=== PATIENT | female | born 1945 | race Caucasian/White ===

== ENCOUNTER → 2017-12-29 | Outpatient (CLI) | payer MEDICARE, OTHER ==
[2017-12-29 08:44] LABS: PLATELET COUNT, AUTOMATED 196 K/uL (150-450)
[2017-12-29 08:56] LABS: LDL CHOLESTEROL 151 mg/dl
== END ==
LOC: LAB 08:02
PROVIDERS: ATTEND Nurse Practitioner Family
DX: E03.9 Hypothyroidism, unspecified (principal); I48.91 Unspecified atrial fibrillation; E55.9 Vitamin D deficiency, unspecified; M81.0 Age-related osteoporosis without current pathological fracture; I10 Essential (primary) hypertension
CPT/HCPCS: 36415; 82040; 82247; 82306; 82310; 82374; 82435; 82465; 82565; 82947; 83718; 84075; 84132; 84155; 84295; 84443; 84450; 84460; 84478; 84520; 85025

== ENCOUNTER → 2018-02-15 | Outpatient (CLI) | payer MEDICARE, OTHER ==
--- NOTE | 2018-02-15 12:49 | EKG ---
FACILITY: [facility] PATIENT NAME: LEONEL MOLINA : [id number] MR: [id number] V: [id number] EXAM DATE: ORDERING PHYSICIAN: ALEXANDRE PURCELL TECHNOLOGIST: KAREY Test Reason : SOB Blood Pressure : / mmHG Vent. Rate : 056 BPM Atrial Rate : 056 BPM P-R Int : 166 ms QRS Dur : 106 ms QT Int : 468 ms P-R-T Axes : 067 080 084 degrees QTc Int : 451 ms Sinus bradycardia Voltage criteria for left ventricular hypertrophy Cannot rule out Inferior infarct , age undetermined Abnormal ECG No previous ECGs available Confirmed by DEYANIRA ALMAGUER ([id number]) on 02/15/2018 8:05:17 PM Referred By: JAZZY Confirmed By:DEYANIRA ALMAGUER
--- NOTE | 2018-02-15 13:14 | RADIOLOGY IMAGING REPORT ---
FACILITY: [facility] PATIENT NAME: April Bailey : 1945 MR: [id number] V: [id number] EXAM DATE: ORDERING PHYSICIAN: LILLY PURCELL TECHNOLOGIST: Location: [facility] Patient: April Bailey : 1945 Visit/Account:[id number] Date of Sevice: 02/15/2018 2 VIEWS CHEST INDICATION: Shortness of breath. A. fib. COMPARISON: None available FINDINGS: The lungs are clear. No effusion or pneumothorax is seen. Heart size and mediastinal contours are nor mal. Suspect prior bilateral mastectomies. Correlate clinically. There are bilateral surgical clip s. Scattered atherosclerosis within the aortic arch. Degenerative changes involve the mid thoracic spine. IMPRESSION: 1. No radiographic evidence of active disease. 2. Atherosclerotic thoracic aorta. Report Dictated By: Uriel Fried at 02/15/2018 1:10 PM Report E-Signed By: Uriel Fried at 02/15/2018 1:11 PM WSN:[email or web address]
== END ==
LOC: RESP 12:15
PROVIDERS: ATTEND Nurse Practitioner Family
DX: R06.02 Shortness of breath (principal); I10 Essential (primary) hypertension; I48.91 Unspecified atrial fibrillation; I70.0 Atherosclerosis of aorta; R94.31 Abnormal electrocardiogram [ECG] [EKG]
CPT/HCPCS: 71046; 93005

== ENCOUNTER → 2018-03-05 | Outpatient (CLI) | payer MEDICARE, OTHER | LOC: LAB 08:32 | PROVIDERS: ATTEND Nurse Practitioner Family | DX: E78.5 Hyperlipidemia, unspecified (principal); E55.9 Vitamin D deficiency, unspecified | CPT/HCPCS: 36415; 82306; 82465; 83718; 84478 ==

== ENCOUNTER → 2018-07-12 | Outpatient (CLI) | payer MEDICARE, OTHER ==
[~2018-07-12] MED LIST: APIX5TAB4; ATEN-1 PO; DEN60I SUBQ; ESCI10TA8 PO; FURO-45 PO; LEVO50TA80 PO; POTA1POW11; RIZA10TA PO
--- NOTE | 2018-07-12 11:31 | RADIOLOGY IMAGING REPORT ---
FACILITY: [facility] [place] PATIENT NAME: April Bailey : 1945 MR: [id number] V: [id number] EXAM DATE: ORDERING PHYSICIAN: LILLY PURCELL TECHNOLOGIST: Location: [facility] Patient: April Bailey : 1945 Visit/Account:[id number] Date of Sevice: 07/12/2018 DEXA Scan Clinical history: History of breast cancer. Comparison: None available. LUMBAR SPINE: The bone mineral density (BMD) measured from L1-L4 correlates with a Z-score 0.6 and a T-score of -0. 3 which is Normal as defined by the World Health Organization. The corresponding risk of fracture in the lumbar spine is Not increased compared with a young adult reference population. HIP: Bone mineral density (BMD) measured in the Left total hip region correlates with a Z-score zero and a T-score of -1 which is Normal as defined by the World Health Organization. The corresponding risk o f fracture in the hip is 2 times increased compared with a young adult reference population. T scor e left femoral neck -1.1 Bone mineral density (BMD) measured in the Femoral Neck region measures 0.884 g/cm2. Impression: 1. Lumbar spine: Normal. 2. Left Hip: Normal. 3. Femoral Neck: Bone Mineral Density is 0.884 g/cm2 The next DEXA scan of this patient should include the following sites: L1-L4 and the left hip. FRAX? WHO Fracture Risk Assessment Tool link: <http://www.shef.ac.uk/FRAX/tool.jsp?locationValue=9> PLEASE NOTE: 1) The World Health Organization defines low BMD as follows: T-score Normal > -1 Osteopenia < -1 and > -2.5 Osteoporosis < -2.5 without fractures Established osteoporosis < -2.5 with fractures 2) In general, you may wish to consider: Diagnosis Treatment Follow-up DEXA Normal BMD Prevention 2-3 years Osteopenia Prevention/therapy 1-2 years Osteoporosis Therapy Yearly 3) Fracture risk estimated from the T-score is more accurate for vertebral fractures (often spontane ous) than for hip fractures. Report Dictated By: Ann Claudio MD at 07/12/2018 11:11 AM Report E-Signed By: Ann Claudio MD at 07/12/2018 11:27 AM WSN:[email or web address]
== END ==
LOC: RAD 03:40
PROVIDERS: ATTEND Nurse Practitioner Family
DX: M81.0 Age-related osteoporosis without current pathological fracture (principal); Z85.3 Personal history of malignant neoplasm of breast
CPT/HCPCS: 77080

== ENCOUNTER → 2018-10-26 | Outpatient (CLI) | payer MEDICARE, OTHER ==
[~2018-10-26] MED LIST changes: +ACET-1966 PO; +CALC-734 PO; +GLUC100026 PO; +KRIL1CAP22; +[UNRECOGNIZED DRUG - CODE] PO
[2018-10-26 17:03] LABS: PLATELET COUNT, AUTOMATED 205 K/uL (150-450)
--- NOTE | 2018-10-27 01:00 | EKG ---
FAC[place] [facility] [place]IENT NAME: LEONEL MOLINA : [id number] MR: [id number] V: [id number] EXAM DATE: ORDERING PHYSICIAN: MUNA CALERO TECHNOLOGIST: JIMMIE Stone Reason : PRE-OP Blood Pressure : / mmHG Vent. Rate : 064 BPM Atrial Rate : 064 BPM P-R Int : 144 ms QRS Dur : 100 ms QT Int : 452 ms P-R-T Axes : 025 068 068 degrees QTc Int : 466 ms Normal sinus rhythm Voltage criteria for left ventricular hypertrophy Abnormal ECG When compared with ECG of 15-FEB-2018 12:27, No significant change was found Confirmed by ABILIO ZEPEDA ([id number]) on 10/27/2018 6:20:40 AM Referred By: MUNA CALERO Confirmed By:ABILIO ZEPEDA
== END ==
LOC: RESP 16:42
PROVIDERS: ATTEND Otolaryngology
DX: Z01.818 Encounter for other preprocedural examination (principal); I48.91 Unspecified atrial fibrillation; R94.31 Abnormal electrocardiogram [ECG] [EKG]
CPT/HCPCS: 36415; 82040; 82247; 82310; 82374; 82435; 82565; 82947; 84075; 84132; 84155; 84295; 84450; 84460; 84520; 85025; 93005

== ENCOUNTER → 2019-02-02 | Outpatient (CLI) | payer MEDICARE, OTHER ==
[2019-02-02 08:58] LABS: LDL CHOLESTEROL 140 mg/dl
--- NOTE | 2019-02-02 11:29 | RADIOLOGY IMAGING REPORT ---
FACILITY: [facility] PATIENT NAME: April Bailey : 1945 MR: [id number] V: [id number] EXAM DATE: ORDERING PHYSICIAN: LILLY PURCELL TECHNOLOGIST: Location: [facility] [place] Patient: April Bailey : 1945 Visit/Account:[id number] Date of Sevice: 02/02/2019 Exam type: HIP LEFT History: Chronic left hip pain Comparison: None. Findings: There is mild joint space narrowing of the hips bilaterally. There is no evidence of acute fracture- dislocation involving the left hip. No lytic or blastic bone lesion is identified IMPRESSION: 1. Mild joint space narrowing at both hip joints likely related to degenerative arthritis. Patient' s symptoms persist an MR may be helpful Report Dictated By: Ann Claudio MD at 02/02/2019 11:23 AM Report E-Signed By: Ann Claudio MD at 02/02/2019 11:24 AM WSN:[email or web address]
== END ==
LOC: LAB 08:24
PROVIDERS: ATTEND Nurse Practitioner Family
DX: M16.0 Bilateral primary osteoarthritis of hip (principal); E03.9 Hypothyroidism, unspecified; E55.9 Vitamin D deficiency, unspecified; E78.5 Hyperlipidemia, unspecified
CPT/HCPCS: 36415; 82040; 82247; 82306; 82310; 82374; 82435; 82465; 82565; 82947; 83718; 84075; 84132; 84155; 84295; 84443; 84450; 84460; 84478; 84520

== ENCOUNTER 2019-03-17 23:37 | Emergency (ER) | payer MEDICARE, OTHER ==
[~2019-03-17 23:37] MED LIST changes: -APIX5TAB4; +APIX5TAB4 PO
--- NOTE | 2019-03-17 23:50 | ER Report ---
History and Physical Time Seen By MD: 23:50 Hx. of Stated Complaint: patient states has had a really dry cough since about thursday, then tonight she started having pain in sternal area with cough, pulse didn't feel right and she started having pain in neck and back. HPI/ROS CHIEF COMPLAINT: cough HISTORY OF PRESENT ILLNESS: This is a 73 year old female. She has had a cry nonproductive cough for a couple of days. Tonight having pain in sternal area as well. Also some pain in neck and back. Short of breath with this tonight as well. [place] her pulse and left wrist did not feel right, the right side felt normal to her. Has history of atrial fibrillation with history of ablation. She is on a new cholesterol medicine recently. On the blood thinner Eliquis. Found to have low oxygen tonight, has not had to be on oxygen in the past. Having subjective fevers as well. Denies any trouble with her bowel or bladder funct ion. Allergies: Coded Allergies: oseltamivir (Verified Allergy, Unknown, 03/17/19) Uncoded Allergies: brazil nut (Allergy, Unknown, 02/03/19) Home Meds Active Scripts Guaifenesin/Codeine (GUAIFENESIN-CODEINE SYRUP) 5 Ml Syrp, 5 ML PO Q6H PRN for COUGH, #120 ML 0 Refills Prov:NEFTALI MOORE MD 03/18/19 Azithromycin (ZITHROMAX) 250 Mg Tablet, 1 TAB PO QDAY for 4 Days, #4 TAB 0 Refills Prov:NEFTALI MOORE MD 03/18/19 Amoxicillin/Pot Clav 875-125 Mg Tab (AUGMENTIN 875-125 TABLET) 1 Each Tablet, 1 TAB PO Q12H, #20 TAB 0 Refills Prov:NEFTALI MOORE MD 03/18/19 Reported Medications Cholecalciferol (Vitamin D3) (D3-50) 50,000 Unit Capsule, 55348 UNIT PO, CAPSULE 10/18/18 Krill/Om-3/Dha/Epa/Phospho/Ast (Megared [place]-3 Krill Oil Sfgl) 1 Each Capsule 10/18/18 Calcium Carbonate/Vitamin D3 (CALCIUM 500 + D TABLET) Unknown Strength Tablet, PO 10/18/18 Glucosamine Sulfate 2KCL (GLUCOSAMINE) Unknown Strength Tablet, 1500 MG PO QDAY 10/18/18 Acetaminophen (TYLENOL) Unknown Strength Tablet, PO PRN for PAIN, TAB 10/18/18 Denosumab (PROLIA) 60 Mg/1 Ml Injs, 60 MG SUBQ 2TIMES A YEAR 05/27/18 Rizatriptan Benzoate (MAXALT) 10 Mg Tablet, 10 MG PO 05/27/18 Levothyroxine Sodium (SYNTHROID) 50 Mcg Tablet, 50 MCG PO QDAY, TAB 05/27/18 Atenolol (ATENOLOL) 50 Mg Tablet, 25 MG PO BID, TAB 05/27/18 Apixaban (Eliquis) 5 Mg (74 Tabs) Tab.ds.pk, 5 MG PO BID 05/27/18 Reviewed Nurses Notes: Yes Smoking Status: Never Smoker Constitutional Vital Sign - Last 24 Hours 03/17/19 03/17/19 03/17/19 03/17/19 23:42 23:45 23:52 23:57 Temp 100.3 Pulse 74 72 Resp 12 20 B/P (MAP) 154/69 147/69 (95) Pulse Ox 85 95 O2 Delivery Room Air O2 Flow Rate 2.0 03/18/19 03/18/19 03/18/19 03/18/19 00:00 00:20 00:30 00:35 Pulse 73 66 Resp 17 18 B/P (MAP) 138/54 (82) 136/60 (85) Pulse Ox 92 92 03/18/19 03/18/19 03/18/19 03/18/19 00:50 01:00 01:05 01:30 Pulse 62 59 Resp 16 20 B/P (MAP) 131/61 (84) 136/61 (86) Pulse Ox 95 95 03/18/19 03/18/19 03/18/19 03/18/19 01:35 01:50 02:00 02:05 Pulse 58 61 65 Resp 20 15 21 B/P (MAP) 129/56 (80) Pulse Ox 92 93 92 03/18/19 03/18/19 03/18/19 03/18/19 02:20 02:30 02:35 02:50 Pulse 64 65 ??? Resp 21 16 B/P (MAP) 116/45 (68) Pulse Ox 91 91 03/18/19 03/18/19 03/18/19 03/18/19 03:00 03:05 03:20 03:30 Pulse 64 65 Resp 20 0 B/P (MAP) 133/54 (80) 135/60 (85) Pulse Ox 93 95 03/18/19 03/18/19 03/18/19 03/18/19 03:35 03:50 04:00 04:05 Pulse 63 65 61 Resp 27 15 32 B/P (MAP) 132/64 (86) Pulse Ox 95 96 96 03/18/19 04:20 Pulse 60 Resp 11 Pulse Ox 93 Physical Exam General Appearance: The patient is alert. No acute distress. Eyes: Pupils are equal, round. No pallor, injection or icterus. ENT: Mucous membranes are moist. Normal oral mucosa. Posterior oropharynx is normal. Neck: Supple and non tender. Respiratory: Lungs are clear to auscultation. There are no retractions or accessory muscle use. Cardiovascular: Regular rate and rhythm. No murmurs, gallops or rubs. Normal capillary refill. Trace edema bilateral ankles. Gastrointestinal: Abdomen is soft and non tender. Nondistended. Normal active bowel sounds. Neurological: Alert and oriented x3. No focal neurologic deficits Skin: Warm and dry. Musculoskeletal: Extremities are nontender. No tenderness in palpation of the back/spine. DIFFERENTIAL DIAGNOSIS: After history and physical exam, differential diagnosis was considered for chest pain, with cough, shortness of breath and some fevers including but not limited to pulmonary infectious process pulmonary embolus, chest wall pain, pleural inflammation and cardiac causes Medical Decision Making Data Points Result Diagram: 03/18/19 0000 03/18/19 0000 Laboratory Hematology Test 03/17/19 23:55 03/18/19 00:00 03/18/19 00:00 Troponin I < 0.012 ng/ml Influenza Virus Type A (PCR) Negative (NEGATIVE) Influenza Virus Type B (PCR) Negative (NEGATIVE) Red Blood Count 4.79 M/uL (4.17-5.56) Mean Corpuscular Volume 89.9 fL (80.0-96.0) Mean Corpuscular Hemoglobin 31.3 pg (26.0-33.0) Mean Corpuscular Hemoglobin Concent 34.8 g/dL (32.0-36.0) Red Cell Distribution Width 13.0 % (11.5-14.5) Mean Platelet Volume 10.1 fL (7.2-11.1) Neutrophils (%) (Auto) 63.9 % (39.4-72.5) Lymphocytes (%) (Auto) 20.0 % (17.6-49.6) Monocytes (%) (Auto) 14.4 % (4.1-12.4) Eosinophils (%) (Auto) 1.3 % (0.4-6.7) Basophils (%) (Auto) 0.4 % (0.3-1.4) Nucleated RBC Relative Count (auto) 0.1 /100WBC Neutrophils # (Auto) 4.8 K/uL (2.0-7.4) Lymphocytes # (Auto) 1.5 K/uL (1.3-3.6) Monocytes # (Auto) 1.1 K/uL (0.3-1.0) Eosinophils # (Auto) 0.1 K/uL (0.0-0.5) Basophils # (Auto) 0.0 K/uL (0.0-0.1) Nucleated RBC Absolute Count (auto) 0.01 K/uL Sodium Level 136 mmol/L (137-145) Potassium Level 3.6 mmol/L (3.5-5.0) Chloride Level 104 mmol/L (98-107) Carbon Dioxide Level 24 mmol/L (22-31) Blood Urea Nitrogen 14 mg/dl (7-18) Creatinine 0.90 mg/dl (0.52-1.04) Glomerular Filtration Rate Calc > 60.0 Random Glucose 129 mg/dl (75-110) Lactate 1.2 mmol/L (0.7-2.1) Calcium Level 9.9 mg/dl (8.4-10.2) Total Bilirubin 0.6 mg/dl (0.2-1.3) Aspartate Amino Transf (AST/SGOT) 29 U/L (0-35) Alanine Aminotransferase (ALT/SGPT) 31 U/L (0-56) Alkaline Phosphatase 51 U/L (0-126) Total Protein 7.0 g/dl (6.3-8.2) Albumin 4.2 g/dl (3.5-5.0) Chemistry Test 03/17/19 23:55 03/18/19 00:00 03/18/19 00:00 Troponin I < 0.012 ng/ml Influenza Virus Type A (PCR) Negative (NEGATIVE) Influenza Virus Type B (PCR) Negative (NEGATIVE) White Blood Count 7.5 k/uL (4.5-11.0) Red Blood Count 4.79 M/uL (4.17-5.56) Hemoglobin 15.0 g/dL (12.0-16.0) Hematocrit 43.0 % (34.0-47.0) Mean Corpuscular Volume 89.9 fL (80.0-96.0) Mean Corpuscular Hemoglobin 31.3 pg (26.0-33.0) Mean Corpuscular Hemoglobin Concent 34.8 g/dL (32.0-36.0) Red Cell Distribution Width 13.0 % (11.5-14.5) Platelet Count 180 K/uL (150-450) Mean Platelet Volume 10.1 fL (7.2-11.1) Neutrophils (%) (Auto) 63.9 % (39.4-72.5) Lymphocytes (%) (Auto) 20.0 % (17.6-49.6) Monocytes (%) (Auto) 14.4 % (4.1-12.4) Eosinophils (%) (Auto) 1.3 % (0.4-6.7) Basophils (%) (Auto) 0.4 % (0.3-1.4) Nucleated RBC Relative Count (auto) 0.1 /100WBC Neutrophils # (Auto) 4.8 K/uL (2.0-7.4) Lymphocytes # (Auto) 1.5 K/uL (1.3-3.6) Monocytes # (Auto) 1.1 K/uL (0.3-1.0) Eosinophils # (Auto) 0.1 K/uL (0.0-0.5) Basophils # (Auto) 0.0 K/uL (0.0-0.1) Nucleated RBC Absolute Count (auto) 0.01 K/uL Glomerular Filtration Rate Calc > 60.0 Lactate 1.2 mmol/L (0.7-2.1) Calcium Level 9.9 mg/dl (8.4-10.2) Total Bilirubin 0.6 mg/dl (0.2-1.3) Aspartate Amino Transf (AST/SGOT) 29 U/L (0-35) Alanine Aminotransferase (ALT/SGPT) 31 U/L (0-56) Alkaline Phosphatase 51 U/L (0-126) Total Protein 7.0 g/dl (6.3-8.2) Albumin 4.2 g/dl (3.5-5.0) EKG/Imaging EKG Interpretation 12 lead EKG: Rhythm: Normal sinus rhythm, rate 60 [place]: normal QRS: Left ventricular hypertrophy ST segments: Strain pattern in the inferior leads. Normal T waves. No other ST elevation or depression Imaging CHEST PA LAT Additional pertinent History: Cough x3 days COMPARISON STUDIES: none FINDINGS: Support lines and catheters: None Lungs and Pleura: There is a vague elongated 4 x 1 cm infiltrative change just paralleling the undersurface of the posterior left ninth rib and left lower lung. This appears to be overlying the posterior aspect of the left heart on the lateral film. No additional abnormalities appreciated. Heart and vasculature: Negative. Saira and Mediastinum: Negative. Bones and Chest wall: Negative. Upper Abdomen: Negative. IMPRESSION: 1. Focal elongated infiltrative/atelectatic change in the left lower lung anter olaterally as described. Recommend clinical correlation and appropriate follow- up to document resolution. Report Dictated By: Ghulam Gruber MD at 03/18/2019 12:[address] CTA CHEST W & W/O CON HISTORY: cough, short of breath, hypoxia One of the following dose optimization techniques was utilized in the performance of this exam: Automated exposure control; adjustment of the mA and/or kV according to the patient's size; or use of an iterative reconstruction technique. Specific details can be referenced in the facility's radiology CT exam operational policy. TECHNIQUE: CTA chest with contrast. 3D coronal slab MIPs and 2D reconstructions in the coronal and sagittal planes were also created. CONTRAST: 75 cc of Isovue 320 COMPARISON: None. FINDINGS: Vessels: Well-opacified pulmonary arteries with no pulmonary emboli identified. Heart and pericardium: Negative Mediastinum and hilum: Negative. Lymph nodes: Reactive lymph nodes in the left hilum. Scattered normal sized periaortic pretracheal and anterior mediastinal lymph nodes. Lungs/pleura: Parenchymal opacity measuring approximately 4 x 2 cm in size in the superior anterior aspect of the superior segment left lower lung. Moderate reactive lymph nodes seen in the left infrahilar region largest measuring approximately 1.4 cm in size. The remainder lung phillips are clear. Visualized upper abdomen: Negative. Lower neck: There is a posterior exophytic mass projecting from the right thyroid gland measuring 1.6 cm in size. Bones/soft tissues: No acute osseous pathology. IMPRESSION: 1. Negative CTA for pulmonary embolus. 2. Parenchymal opacity in the left lower lung consistent with a pneumonic infiltrate in the superior anterior aspect of the left lower lung with reactive lymphadenopathy. Recommend clinical correlation and appropriate follow-up. 3. Exophytic mass projecting from the posterior aspect of the right thyroid gland. Recommend ultrasound of the thyroid gland for complete evaluation. Report Dictated By: Ghulam Gruber MD at 03/18/2019 3:36 AM ED Course/Re-evaluation Clinical Indication for ER IV: IV Access ED Course Initial evaluation as noted above. Patient improved with oxygen. Chest x-ray initially with question of changes in left side, CTA done without sings of PE, but evidence of pneumonia in left lower lung. Incidental noted thyroid changes needed follow-up and discussed this with the patient as well. Offered home treatment with oral antibiotics and home oxygen versus admission for treatment here. She feels well enough to return home. See instructions below. Decision to Disposition Date: Mar 18, 2019 Decision to Disposition Time: 04:30 Depart Departure Latest Vital Signs Vital Signs Date Time Temp Pulse Resp B/P (MAP) Pulse Ox O2 Delivery O2 Flow Rate FiO2 03/18/19 04:20 60 11 93 03/18/19 04:00 132/64 (86) 03/17/19 23:57 2.0 03/17/19 23:42 100.3 Room Air Impression: Primary Impression: Pneumonia Additional Impression: Hypoxia Condition: Improved Disposition: HOME OR SELF-CARE New Scripts Guaifenesin/Codeine (GUAIFENESIN-CODEINE SYRUP) 5 Ml Syrp 5 ML PO Q6H PRN for COUGH, #120 ML 0 Refills Prov: NEFTALI MOORE MD 03/18/19 Azithromycin (ZITHROMAX) 250 Mg Tablet 1 TAB PO QDAY for 4 Days, #4 TAB 0 Refills Prov: NEFTALI MOORE MD 03/18/19 Amoxicillin/Pot Clav 875-125 Mg Tab (AUGMENTIN 875-125 TABLET) 1 Each Tablet 1 TAB PO Q12H, #20 TAB 0 Refills Prov: NEFTALI MOORE MD 4/19/19 Patient Instructions: Bacterial Pneumonia (ED) Additional Instructions: You have pneumonia in the left lower lobe of your lungs. Take the following two antibiotics: Augmentin 875/125 twice a day for 10 days. Azithromycin 250mg once a day for 4 days. Rest and increase fluid intake. Use oxygen continuously until you see your regular provider and they tell you that it is alright to discontinue the oxygen. You can use Guaifenesin with Codeine cough medicine, 1 teaspoon every 6 hours as needed for cough. Make sure to talk to your provider about the changes that were seen in your thyroid gland so they can order follow-up studies to look at this further. Problem Qualifiers Primary Impression: Pneumonia Pneumonia type: due to unspecified organism Laterality: left Lung location: lower lobe of lung Qualified Codes: J18.1 - Lobar pneumonia, unspecified organism NEFTALI MOORE MD Mar 17, 2019 23:50
[2019-03-18 00:24] LABS: PLATELET COUNT, AUTOMATED 180 K/uL (150-450)
--- NOTE | 2019-03-18 00:43 | RADIOLOGY IMAGING REPORT ---
FACILITY: [facility] PATIENT NAME: April Bailey : 1945 MR: [id number] V: [id number] EXAM DATE: ORDERING PHYSICIAN: NEFTALI MOORE TECHNOLOGIST: Location: [facility] [place] Patient: April Bailey : 1945 Visit/Account:[id number] Date of Sevice: 03/18/2019 CHEST PA LAT Additional pertinent History: Cough x3 days COMPARISON STUDIES: none FINDINGS: Support lines and catheters: None Lungs and Pleura: There is a vague elongated 4 x 1 cm infiltrative change just paralleling the unders urface of the posterior left ninth rib and left lower lung. This appears to be overlying the posterio r aspect of the left heart on the lateral film. No additional abnormalities appreciated. Heart and vasculature: Negative. Saira and Mediastinum: Negative. Bones and Chest wall: Negative. Upper Abdomen: Negative. IMPRESSION: 1. Focal elongated infiltrative/atelectatic change in the left lower lung anterolaterally as describe d. Recommend clinical correlation and appropriate follow-up to document resolution. Report Dictated By: Ghulam Gruber MD at 03/18/2019 12:32 AM Report E-Signed By: Ghulam Gruber MD at 03/18/2019 12:39 AM WSN:[id number]
--- NOTE | 2019-03-18 01:23 | EKG ---
FACILITY: [facility] PATIENT NAME: LEONEL MOLINA : [id number] MR: [id number] V: [id number] EXAM DATE: ORDERING PHYSICIAN: NEFTALI MOORE TECHNOLOGIST: ROM Test Reason : CHEST PAIN Blood Pressure : / mmHG Vent. Rate : 060 BPM Atrial Rate : 060 BPM P-R Int : 164 ms QRS Dur : 096 ms QT Int : 454 ms P-R-T Axes : 062 081 085 degrees QTc Int : 454 ms Normal sinus rhythm Voltage criteria for left ventricular hypertrophy Abnormal ECG When compared with ECG of 26-OCT-2018 16:53, No significant change was found Confirmed by ABILIO ZEPEDA ([id number]) on 03/18/2019 6:37:46 AM Referred By: Confirmed By:ABILIO ZEPEDA
[2019-03-18] MEDS ORDERED: NS(*) 0.9% 50 ML BAG 50 ML ONE (01:39)
[2019-03-18 04:00] VITALS: BP 132/64
--- NOTE | 2019-03-18 04:09 | RADIOLOGY IMAGING REPORT ---
FACILITY: [facility] PATIENT NAME: April Bailey : 1945 MR: [id number] V: [id number] EXAM DATE: [id number] ORDERING PHYSICIAN: NEFTALI MOORE TECHNOLOGIST: Location: [facility] [place] Patient: April Bailey : 1945 Visit/Account:[id number] Date of Sevice: 03/18/2019 CT CTA CHEST W & W/O CON HISTORY: cough, short of breath, hypoxia One of the following dose optimization techniques was utilized in the performance of this exam: Autom ated exposure control; adjustment of the mA and/or kV according to the patient's size; or use of an i terative reconstruction technique. Specific details can be referenced in the facility's radiology C T exam operational policy. TECHNIQUE: CTA chest with contrast. 3D coronal slab MIPs and 2D reconstructions in the coronal and sagittal planes were also created. CONTRAST: 75 cc of Isovue 320 COMPARISON: None. FINDINGS: Vessels: Well-opacified pulmonary arteries with no pulmonary emboli identified. Heart and pericardium: Negative Mediastinum and hilum: Negative. Lymph nodes: Reactive lymph nodes in the left hilum. Scattered normal sized periaortic pretracheal a nd anterior mediastinal lymph nodes. Lungs/pleura: Parenchymal opacity measuring approximately 4 x 2 cm in size in the superior anterior aspect of the superior segment left lower lung. Moderate reactive lymph nodes seen in the left infrah ilar region largest measuring approximately 1.4 cm in size. The remainder lung phillips are clear. Visualized upper abdomen: Negative. Lower neck: There is a posterior exophytic mass projecting from the right thyroid gland measuring 1.6 cm in size. Bones/soft tissues: No acute osseous pathology. IMPRESSION: 1. Negative CTA for pulmonary embolus. 2. Parenchymal opacity in the left lower lung consistent with a pneumonic infiltrate in the superior anterior aspect of the left lower lung with reactive lymphadenopathy. Recommend clinical correlation and appropriate follow-up. 3. Exophytic mass projecting from the posterior aspect of the right thyroid gland. Recommend ultrasou nd of the thyroid gland for complete evaluation. Report Dictated By: Ghulam Gruber MD at 03/18/2019 3:36 AM Report E-Signed By: Ghulam Gruber MD at 03/18/2019 4:05 AM WSN:[id number]
[2019-03-18] MEDS ORDERED: AZITHROMYCIN 250 MG TAB PO ONE (04:20)
[2019-03-18] MEDS ORDERED: guaiFENesin/CODEINE 5 ML UDBTL PO ONE (04:20)
[2019-03-18] MEDS ORDERED: AMOX/CLAV 875 MG TAB PO ONE (04:20)
[2019-03-18] MEDS ORDERED: ROBC PO (04:26)
[2019-03-18] MEDS ORDERED: AZIT-1 PO (04:26)
[2019-03-18] MEDS ORDERED: AMOX-559 PO (04:26)
== END 2019-03-18 04:51 | disposition home or self-care (01) ==
LOC: ER 23:58
DX: J18.1 Lobar pneumonia, unspecified organism (principal); R09.02 Hypoxemia
CPT/HCPCS: 71046; 71275; 83605; 84484; 85025; 87040; 87502; 93005; 99284; A9270; J7050; Q0144; 82040; 82247; 82310; 82374; 82435; 82565; 82947; 84075; 84132; 84155; 84295; 84450; 84460; 84520; Q9967

== ENCOUNTER → 2019-03-23 | Outpatient (CLI) | payer MEDICARE, OTHER ==
[~2019-03-23] MED LIST changes: +AMOX-559 PO; +AZIT-1 PO; +ROBC PO
--- NOTE | 2019-03-23 15:32 | EKG ---
FACILITY: [facility] [place] PATIENT NAME: LEONEL MOLINA : [id number] MR: [id number] V: [id number] EXAM DATE: ORDERING PHYSICIAN: ALEXANDRE PURCELL TECHNOLOGIST: ANNABELLA Test Reason : A FIB, CP Blood Pressure : / mmHG Vent. Rate : 059 BPM Atrial Rate : 059 BPM P-R Int : 160 ms QRS Dur : 102 ms QT Int : 466 ms P-R-T Axes : 075 088 081 degrees QTc Int : 461 ms Sinus bradycardia Minimal voltage criteria for LVH, may be normal variant Borderline ECG When compared with ECG of 18-MAR-2019 01:16, No significant change was found Confirmed by ABILIO ZEPEDA ([id number]) on 03/23/2019 6:13:48 PM Referred By: JAZZY Confirmed By:ABILIO ZEPEDA
--- NOTE | 2019-03-23 15:47 | RADIOLOGY IMAGING REPORT ---
FACILITY: [facility] [place] PATIENT NAME: April Bailey : 1945 MR: [id number] V: [id number] EXAM DATE: ORDERING PHYSICIAN: LILLY PURCELL TECHNOLOGIST: Location: [facility] [place] Patient: April Bailey : 1945 Visit/Account:[id number] Date of Sevice: 03/23/2019 CHEST PA LAT HISTORY: Chest pain COMPARISON: 03/18/2019 FINDINGS: Cardiomediastinal contours: Normal Lungs and pleura: Improving left perihilar airspace disease. Right lung is clear. No pneumothorax or pleural effusion. Bones/soft tissues: Right axillary surgical clips. Other findings: None significant IMPRESSION: 1. Improving left perihilar infiltrate. Report Dictated By: Demond Fortune MD at 03/23/2019 3:21 PM Report E-Signed By: Demond Fortune MD at 03/23/2019 3:43 PM WSN:[id number]
== END ==
LOC: RAD 14:55
PROVIDERS: ATTEND Nurse Practitioner Family
DX: R00.1 Bradycardia, unspecified (principal); J18.9 Pneumonia, unspecified organism; I48.91 Unspecified atrial fibrillation; R07.9 Chest pain, unspecified
CPT/HCPCS: 71046; 93005

== ENCOUNTER → 2019-03-29 | Outpatient (CLI) | payer MEDICARE, OTHER ==
--- NOTE | 2019-03-29 17:12 | RADIOLOGY IMAGING REPORT ---
FACILITY: [facility] PATIENT NAME: April Bailey : 1945 MR: [id number] V: [id number] EXAM DATE: ORDERING PHYSICIAN: LILLY PURCELL TECHNOLOGIST: Location: [facility] Patient: April Bailey : 1945 Visit/Account:[id number] Date of Sevice: 03/29/2019 THYROID HISTORY: Right-sided thyroid mass seen on recent CT COMPARISON: CTA chest March 18, 2019. The patient has had prior outside thyroid ultrasound and a pr ior thyroid biopsies. The prior images have been sent for although have not yet been received. An a ddendum can be dictated at that time. FINDINGS: SIZE: Right lobe: 4.8 x 2.3 x 1.6 cm Left lobe: 4.1 x 1.5 x 1.5 cm Isthmus: 3 mm PARENCHYMA: Homogeneous. NODULES: Right lobe: * In the mid right lobe there is a 1.6 x 1 x 1.5 cm hypoechoic well-circumscribed nodule. In the cano perior right lobe there is a 8 mm well-circumscribed ovoid hypoechoic nodule appears hypervascular * In the inferior right lobe there is a 1.7 x 1.5 x 1.4 cm lobular hypoechoic nodule Left lobe: * In the mid to inferior left lobe is a 2.3 x 1.9 x 1.9 cm well-circumscribed hypoechoic nodule that appears hypervascular in the mid to inferior left lobe there is a 1 cm circumscribed ovoid hypoechoi c nodule. In the medial mid left lobe there is a 6 mm well-circumscribed hypoechoic nodule in the mi d to superior pole there is a 9 mm well-circumscribed hypoechoic nodule Isthmus: * None discrete. VASCULARITY: Increased bilaterally ADDITIONAL FINDINGS: None. IMPRESSION: There multiple bilateral solid thyroid nodules. The patient gives a history of prior biopsies althou gh which nodules were biopsied not clear. The previous outside imaging studies have been sent for an d when they are received an addendum can be dictated at that time REFERENCE: 2015 [employer] Management Guidelines for Adult Patients with Thyroid Nodules and D ifferentiated Thyroid Cancer: The [employer] Guidelines Task Force on Thyroid Nodul es and Differentiated Thyroid Cancer. SONOGRAPHIC PATTERNS: * Benign: Purely cystic nodules (no solid component); estimated risk of malignancy <1 percent; no bi opsy recommended. * Very Low Suspicion: Spongiform or partially cystic nodules without any of the sonographic features described in low, intermediate, or high suspicion patterns; estimated risk of malignancy <3 percent; consider FNA at > 2 cm (Observation without FNA is also a reasonable option). * Low Suspicion: Isoechoic or hyperechoic solid nodule, or partially cystic nodule with eccentric so lid areas, without microcalcification, irregular margin or ETE (extra-thyroidal extension), or taller than wide shape; estimated risk of malignancy 5-10 percent; recommend FNA at >1.5 cm. * Intermediate Suspicion: Hypoechoic solid nodule with smooth margins without microcalcifications, E TE (extra-thyroidal extension), or taller than wide shape; estimated risk of malignancy 10-20 percent ; recommend FNA at > 1 cm. * High Suspicion: Solid hypoechoic nodule or solid hypoechoic component of a partially cystic nodule with one or more of the following features: irregular margins (infiltrative, microlobulated), microc alcifications, taller than wide shape, rim calcifications with small extrusive soft tissue component, evidence of ETE (extra-thyroidal extension); estimated risk of malignancy >70-90 percent; recommend FNA at > 1 cm. NOTES: * Although a sonographically suspicious subcentimeter thyroid nodule without evidence of extrathyroi hawa extension or sonographically suspicious lymph nodes may be observed with close sonographic follow -up rather than pursuing immediate FNA, patient age and preference may modify decision-making. A > 50% interval increase in nodule volume and/or development of new suspicious sonographic features are felt to be a valid reasons for potential re-aspiration of a nodule previously shown to have benig n FNA cytology. Report Dictated By: Ann Claudio MD at 5:03 PM Report E-Signed By: Ann Claudio MD at 03/29/2019 5:08 PM WSN:[email or web address]
== END ==
LOC: US 01:25
PROVIDERS: ATTEND Nurse Practitioner Family
DX: E04.2 Nontoxic multinodular goiter (principal)
CPT/HCPCS: 76536

== ENCOUNTER → 2019-04-07 | Outpatient (CLI) | payer MEDICARE, OTHER | LOC: LAB 11:46 | PROVIDERS: ATTEND Nurse Practitioner | DX: L82.0 Inflamed seborrheic keratosis (principal) | CPT/HCPCS: 88305 ==

== ENCOUNTER → 2019-04-21 | Outpatient (CLI) | payer MEDICARE, OTHER ==
--- NOTE | 2019-04-21 14:47 | RADIOLOGY IMAGING REPORT ---
FACILITY: [facility] PATIENT NAME: April Bailey : 1945 MR: [id number] V: [id number] EXAM DATE: ORDERING PHYSICIAN: LILLY PURCELL TECHNOLOGIST: Location: [facility] [place] Patient: April Bailey : 1945 Visit/Account:[id number] Date of Sevice: 04/21/2019 Exam type: XR SHOULDER 2 VIEWS History: Bilateral shoulder pain when raising arms above head Comparison: None. Findings: Three views of both shoulders were submitted. There are mild generative changes at the left glenohum eral joint. There are moderate degenerative changes at the left AC joint. No evidence of acute frac ture or dislocation. There are mild degenerative changes at the right AC joint and mild to moderate narrowing at the right glenohumeral joint. No evidence of acute fracture or dislocation. Surgical clips are identified in both axillary regions IMPRESSION: 1. Mild degenerative changes at the glenohumeral joints bilaterally Moderate degenerative changes at the left AC joint and mild generative changes at the right AC joint Report Dictated By: Ann Claudio MD at 04/21/2019 2:11 PM Report E-Signed By: Ann Claudio MD at 04/21/2019 2:40 PM WSN:[email or web address]
== END ==
LOC: RAD 11:49
PROVIDERS: ATTEND Nurse Practitioner Family
DX: M25.511 Pain in right shoulder (principal); M25.512 Pain in left shoulder

== ENCOUNTER → 2019-05-19 | Outpatient (CLI) | payer MEDICARE, OTHER ==
[2019-05-19 09:17] LABS: LDL CHOLESTEROL 79 mg/dl
== END ==
LOC: LAB 08:30
PROVIDERS: ATTEND Nurse Practitioner Family
DX: E78.5 Hyperlipidemia, unspecified (principal)
CPT/HCPCS: 36415; 82040; 82247; 82310; 82374; 82435; 82465; 82565; 82947; 83718; 84075; 84132; 84155; 84295; 84450; 84460; 84478; 84520